=== PATIENT | female | born 1940 | race Caucasian/White ===

== ENCOUNTER → 2016-09-20 | Outpatient (CLI) | payer OTHER | LOC: BMCIMAGING 09:03 | DX: Z12.31 Encounter for screening mammogram for malignant neoplasm of breast (principal) | CPT/HCPCS: G0202 ==

== ENCOUNTER → 2016-12-24 | Outpatient (CLI) | payer OTHER | LOC: BMCIMAGING 09:47 | PROVIDERS: ATTEND Family Medicine | DX: Z13.820 Encounter for screening for osteoporosis (principal); M81.0 Age-related osteoporosis without current pathological fracture ==

== ENCOUNTER → 2017-11-04 | Outpatient (CLI) | payer OTHER | LOC: BMCIMAGING 09:05 | PROVIDERS: ATTEND Family Medicine | DX: Z12.31 Encounter for screening mammogram for malignant neoplasm of breast (principal) ==

== ENCOUNTER 2017-11-17 12:15 | Observation (INO) | payer OTHER ==
--- NOTE | 2017-11-17 13:01 | EDPHY ---
H & P Time Seen by Provider: 11/17/17 12:50 HPI/ROS: CHIEF COMPLAINT: Head pressure and difficulty speaking HISTORY OF PRESENT ILLNESS: Symptoms started on November 07 when she felt initially like her teeth were hurting and she went kayaking but had trouble with speech like she was stem ring. She had a little bit of a headache or head pressure on the left side with difficulty thinking of words to say causing her to have halting speech. She was seen at urgent care on November 10 treated with azithromycin for sinusitis. She presents today with continued left-sided head pressure associated with trouble thinking of words she wants to say causing her to Stammer with her speech. She still has some soreness especially in upper teeth and associated nausea and anxiety. No chest pain now, she has had a couple of"pings"which are seconds of chest pain over the past couple of weeks REVIEW OF SYSTEMS: Eye: No double vision ENT: No earache or sore throat Cardiac: No palpitations or syncope Pulmonary: no cough or SOB Abdomen: no vomiting, diarrhea, abdominal pain Musculoskeletal: no back pain or neck pain Skin: no rash Neuro: No vertigo Constitutional: no fever : no urinary symptoms A comprehensive 10 point review of systems is otherwise negative aside from elements mentioned in the history of present illness. PAST MEDICAL HISTORY: Includes hypothyroid and hysterectomy and mitral valve prolapse, high cholesterol Social history: Nonsmoker, here with her brother General Appearance: Alert and conversant, cooperative. Eyes: No scleral icterus. ENT, Mouth: Normal mucous membranes. No trismus, no gum swelling, normal dentition. Face nontender. Respiratory: Normal respiratory effort, breath sounds equal, lungs are clear to auscultation. Cardiovascular: Regular rate and rhythm. Gastrointestinal: Abdomen is soft and non tender. Neurological: Alert, face symmetric, normal motor and sensory in extremities. No pronator drift, [id number] bilaterally intact, speech fluent. Skin: Warm and dry, no rashes. Musculoskeletal: No peripheral edema. Neck supple. Psychiatric: Not agitated. Emergency Department course/MDM: Query TIA with difficulty with word-finding. Plan for head CT, EKG, labs to include protime and troponin. 1335: Normal head CT per Dr. Champion. Plan admission for TIA workup, discussed with patient and brother. Smoking Status: Never smoked Constitutional: Initial Vital Signs Temperature (C) 36.9 C 11/17/17 12:17 Heart Rate 66 11/17/17 12:17 Respiratory Rate 18 11/17/17 12:17 Blood Pressure 196/72 H 11/17/17 12:17 O2 Sat (%) 96 11/17/17 12:17 O2 Delivery Mode Room Air Allergies/Adverse Reactions: cephalexin [From Keflex] Allergy (Verified 11/17/17 12:17) ciprofloxacin [From Cipro] Allergy (Verified 11/17/17 12:17) nitrofurantoin [From Macrobid] Allergy (Verified 11/17/17 12:17) sulfamethoxazole [From Bactrim] Allergy (Verified 11/17/17 12:17) trimethoprim [From Bactrim] Allergy (Verified 11/17/17 12:17) Home Medications: Medication Instructions Recorded Synthroid 11/17/17 Medical Decision Making - Diagnostics EKG Interpretation: 12-lead EKG interpreted by me; official reading is in trace master. My interpretation is sinus rhythm rate 61 and nonspecific anterior T-wave flattening. Imaging Results: Imaging Impressions Head CT 11/17/17 13:00 Impression: Normal noncontrast CT of the brain. Results called to Dr. Winkler at 1:30 PM at the time of the interpretation. Imaging: Discussed imaging studies w/ plastics repairer Radiologist Differential Diagnosis: Differential for word-finding considered including but not limited to seizure, TIA, metabolic, medication related. Consult/Admit Bed Type: [place] [address] - Data Points Laboratory Results: Laboratory Results 11/17/17 12:50 11/17/17 12:50 11/17/17 11/17/17 11/17/17 12:50 12:50 12:50 WBC 7.07 10^3/uL 10^3/uL (3.80-9.50) RBC 5.04 10^6/uL 10^6/uL (4.18-5.33) Hgb 14.6 g/dL g/dL (12.6-16.3) Hct 43.3 % % (38.0-47.0) MCV 85.9 fL fL (81.5-99.8) MCH 29.0 pg pg (27.9-34.1) MCHC 33.7 g/dL g/dL (32.4-36.7) RDW 13.0 % % (11.5-15.2) Plt Count 293 10^3/uL 10^3/uL (150-400) MPV 9.9 fL fL (8.7-11.7) Neut % (Auto) 56.2 % % (39.3-74.2) Lymph % (Auto) 33.7 % % (15.0-45.0) [place] % (Auto) 7.6 % % (4.5-13.0) Eos % (Auto) 1.6 % % (0.6-7.6) Baso % (Auto) 0.6 % % (0.3-1.7) Nucleat RBC Rel Count 0.0 % % (0.0-0.2) Absolute Neuts (auto) 3.98 10^3/uL 10^3/uL (1.70-6.50) Absolute Lymphs (auto) 2.38 10^3/uL 10^3/uL (1.00-3.00) Absolute Monos (auto) 0.54 10^3/uL 10^3/uL (0.30-0.80) Absolute Eos (auto) 0.11 10^3/uL 10^3/uL (0.03-0.40) Absolute Basos (auto) 0.04 10^3/uL 10^3/uL (0.02-0.10) Absolute Nucleated RBC 0.00 10^3/uL 10^3/uL (0-0.01) Immature Gran % 0.3 % % (0.0-1.1) Immature Gran # 0.02 10^3/uL 10^3/uL (0.00-0.10) PT INR Sodium 142 mEq/L mEq/L (135-145) Potassium 4.7 mEq/L mEq/L (3.3-5.0) Chloride 107 mEq/L mEq/L (97-110) Carbon Dioxide 25 mEq/l mEq/l (22-31) Anion Gap 10 mEq/L mEq/L (8-16) BUN 25 mg/dL H mg/dL (7-23) Creatinine 0.8 mg/dL mg/dL (0.6-1.0) Estimated GFR > 60 Glucose 90 mg/dL mg/dL (70-100) Calcium 10.3 mg/dL mg/dL (8.5-10.4) Troponin I < 0.012 ng/mL ng/mL (0.000-0.034) TSH 0.508 uIU/mL uIU/mL (0.465-4.680) 11/17/17 12:50 WBC RBC Hgb Hct MCV MCH MCHC RDW Plt Count MPV Neut % (Auto) Lymph % (Auto) [place] % (Auto) Eos % (Auto) Baso % (Auto) Nucleat RBC Rel Count Absolute Neuts (auto) Absolute Lymphs (auto) Absolute Monos (auto) Absolute Eos (auto) Absolute Basos (auto) Absolute Nucleated RBC Immature Gran % Immature Gran # PT 12.8 SEC SEC (12.0-15.0) INR 0.94 (0.83-1.16) Sodium Potassium Chloride Carbon Dioxide Anion Gap BUN Creatinine Estimated GFR Glucose Calcium Troponin I TSH Departure - Departure Disposition: [facility] Inpatient Acute Clinical Impression: Word finding difficulty Condition: Good
--- NOTE | 2017-11-17 13:07 | CPEKG ---
Heart Rate: 61 RR Interval: 984 P-R Interval: 140 QRSD Interval: 72 QT Interval: 404 QTC Interval: 407 P Echo: 59 QRS Echo: 58 T Wave Echo: 45 EKG Severity - BORDERLINE ECG - EKG Impression: SINUS RHYTHM EKG Impression: BORDERLINE T ABNORMALITIES, ANTERIOR LEADS Electronically Signed By: Mario Winkler 17-Nov-2017 13:42:45
[2017-11-17 13:50] LABS: PLATELET COUNT 293 10^3/uL (150-400)
[2017-11-17 14:07] LABS: INR 0.94 (0.83-1.16); PROTIME(PATIENT) 12.8 SEC (12.0-15.0)
[2017-11-17] MEDS ORDERED: ONDANSETRON DISINTEGRATING 4 MG TAB PO PRN (14:32)
[2017-11-17] MEDS ORDERED: ACETAMINOPHEN 325 MG TAB PO PRN (14:32)
[2017-11-17] MEDS ORDERED: LABETALOL HCL 5 MG/ML 20 ML MDV IVP PRN (14:43)
[2017-11-17] MEDS ORDERED: ASPIRIN 325 MG TAB PO ONE (14:44)
[2017-11-17] MEDS ORDERED: ATORVASTATIN CALCIUM 40 MG TAB PO SCH (14:45)
--- NOTE | 2017-11-17 15:47 | PDGENHP ---
History and Physical - Chief Complaint word finding difficulties - History of Present Illness 76 yo female with h/o hypothyroidism presents to ED with word finding difficulties. She notes symptoms [place]07/2017 [place] She couldn't find the correct words. She denies slurred speech, vision changes, facial droop or focal weakness. She had a headache when she got home that day. Since then, she developed pain in her teeth and went to urgent care. She was given azithromycin for sinusitis. She noted her SBP was elevated at that time. Her BP has been up and down since then. Over the past week, she has had recurrent symptoms of "stammering" speech. She feels like her symptoms are present now. Still without focal weakness or other neurodeficits. Denies chest pressure or shortness of breath. Has h/o hypertension, but not on meds currently. She also has h/o high cholesterol and has tried 5 different statins, but gets muscle weakness. She is a lifetime non-smoker. History Information - Allergies/Home Medication List Allergies/Adverse Reactions: cephalexin [From Keflex] Allergy (Verified 11/17/17 12:17) ciprofloxacin [From Cipro] Allergy (Verified 11/17/17 12:17) nitrofurantoin [From Macrobid] Allergy (Verified 11/17/17 12:17) Nwnonil-Djf-Suz Reductase Inhibitor Allergy (Verified 11/17/17 15:48) sulfamethoxazole [From Bactrim] Allergy (Verified 11/17/17 12:17) trimethoprim [From Bactrim] Allergy (Verified 11/17/17 12:17) Home Medications: Levothyroxine [Synthroid 112 mcg (*)] 56 mcg PO Q2D@11/17/17 [Last Taken ] Levothyroxine [Synthroid 125 mcg (*)] 62.5 mcg PO Q2D@11/17/17 [Last Taken ] I have personally reviewed and updated: family history, medical history, social history, surgical history - Past Medical History hypertension, hyperlipidemia Additional medical history: hypothyroid. mitral valve prolapse - Surgical History Reports: hysterectomy Additional surgical history: cataract surgery. tonsillectomy - Family History Positive for: stroke Additional family history: mom had strokes. maternal grandfather had strokes - Social History Smoking Status: Never smoked Alcohol Use: None Drug Use: None Additional social history: Lives alone, . Active, kayaks, walks. Review of Systems Review of Systems: ROS: 10pt was reviewed & negative except for what was stated in HPI & below Physical Exam Physical Exam: Temp Pulse Resp BP Pulse Ox 36.5 C 64 18 174/61 H 97 11/17/17 15:02 11/17/17 15:02 11/17/17 15:02 11/17/17 15:02 11/17/17 15:02 Constitutional: no apparent distress Eyes: PERRL Ears, Nose, Mouth, Throat: moist mucous membranes Cardiovascular: regular rate and rhythym, no murmur, rub, or gallop Respiratory: no respiratory distress, clear to auscultation Gastrointestinal: normoactive bowel sounds, soft, non-tender abdomen Skin: warm Musculoskeletal: full muscle strength Neurologic: AAOx3, other (no facial droop, pronator drift neg, 5/5 muscle strength UE's and LE's b/l, sensation intact, speech fluent) Psychiatric: interacting appropriately Lab Data & Imaging Review 11/17/17 12:50 11/17/17 12:50 WBC 7.07 10^3/uL (3.80-9.50) 11/17/17 12:50 RBC 5.04 10^6/uL (4.18-5.33) 11/17/17 12:50 Hgb 14.6 g/dL (12.6-16.3) 11/17/17 12:50 Hct 43.3 % (38.0-47.0) 11/17/17 12:50 MCV 85.9 fL (81.5-99.8) 11/17/17 12:50 MCH 29.0 pg (27.9-34.1) 11/17/17 12:50 MCHC 33.7 g/dL (32.4-36.7) 11/17/17 12:50 RDW 13.0 % (11.5-15.2) 11/17/17 12:50 Plt Count 293 10^3/uL (150-400) 11/17/17 12:50 MPV 9.9 fL (8.7-11.7) 11/17/17 12:50 Neut % (Auto) 56.2 % (39.3-74.2) 11/17/17 12:50 Lymph % (Auto) 33.7 % (15.0-45.0) 11/17/17 12:50 [place] % (Auto) 7.6 % (4.5-13.0) 11/17/17 12:50 Eos % (Auto) 1.6 % (0.6-7.6) 11/17/17 12:50 Baso % (Auto) 0.6 % (0.3-1.7) 11/17/17 12:50 Nucleat RBC Rel Count 0.0 % (0.0-0.2) 11/17/17 12:50 Absolute Neuts (auto) 3.98 10^3/uL (1.70-6.50) 11/17/17 12:50 Absolute Lymphs (auto) 2.38 10^3/uL (1.00-3.00) 11/17/17 12:50 Absolute Monos (auto) 0.54 10^3/uL (0.30-0.80) 11/17/17 12:50 Absolute Eos (auto) 0.11 10^3/uL (0.03-0.40) 11/17/17 12:50 Absolute Basos (auto) 0.04 10^3/uL (0.02-0.10) 11/17/17 12:50 Absolute Nucleated RBC 0.00 10^3/uL (0-0.01) 11/17/17 12:50 Immature Gran % 0.3 % (0.0-1.1) 11/17/17 12:50 Immature Gran # 0.02 10^3/uL (0.00-0.10) 11/17/17 12:50 PT 12.8 SEC (12.0-15.0) 11/17/17 12:50 INR 0.94 (0.83-1.16) 11/17/17 12:50 Sodium 142 mEq/L (135-145) 11/17/17 12:50 Potassium 4.7 mEq/L (3.3-5.0) 11/17/17 12:50 Chloride 107 mEq/L (97-110) 11/17/17 12:50 Carbon Dioxide 25 mEq/l (22-31) 11/17/17 12:50 Anion Gap 10 mEq/L (8-16) 11/17/17 12:50 BUN 25 mg/dL (7-23) H 11/17/17 12:50 Creatinine 0.8 mg/dL (0.6-1.0) 11/17/17 12:50 Estimated GFR > 60 11/17/17 12:50 Glucose 90 mg/dL (70-100) 11/17/17 12:50 Calcium 10.3 mg/dL (8.5-10.4) 11/17/17 12:50 Troponin I < 0.012 ng/mL (0.000-0.034) 11/17/17 12:50 TSH 0.508 uIU/mL (0.465-4.680) 11/17/17 12:50 Visualized and Interpreted EKG results: Yes EKG Interpretation: Positive for: normal sinsus rhythm EKG additional interpertation: T wave flattening anterior leads Assessment & Plan Assessment: Word finding difficulty - she certainly has risk factors for TIA with hypertension, hyperlipidemia and positive family history. Warrants admission for TIA workup. Also consider hypertensive encephalopathy as explanation for symptoms. -CTA head and neck now -MRI, echo in am -monitor on tele, consider outpt event monitor -ASA now and continue daily, add hs pepcid due to GI symptoms with asa in past -pt declines statin, has tried 5, gets muscle weakness -check a1c, lipids -permissive hypertension for now, treat for SBP >220 -neurology consult in am Hypertension - permissive htn for now as above, should likely start anti- hypertensive prior to dc Hyperlipidemia - check lipid panel in am. Has previously not tolerate Hypothyroidism - TSH normal on arrival, cont home levothyroxine dose DVT PPLX - SCD's, ambulation. Consider Lovenox if requires prolonged hospitalization Code status - pt wishes to be DNR Dispo - obs
[2017-11-17] MEDS ORDERED: ATORVASTATIN CALCIUM 40 MG TAB PO ONE (17:00)
[2017-11-17] MEDS ORDERED: IOPAMIDOL (ISOVUE 370) 100 ML BTL IV ONE (17:09)
[2017-11-17] MEDS ORDERED: FAMOTIDINE 20 MG TAB PO SCH (21:00)
[2017-11-18] MEDS ORDERED: LEVOTHYROXINE 125 MCG TAB PO SCH (06:00)
[2017-11-18] MEDS ORDERED: ASPIRIN 81 MG CHEWABLE TAB PO SCH (09:00)
[2017-11-18] MEDS ORDERED: ASPIRIN EC 81 MG TAB PO SCH (09:00)
--- NOTE | 2017-11-18 09:15 | NEUROPROG ---
Assessment: HOSPITAL NEUROLOGY CONSULT REQUESTING: Amanda Valadez DO REASON: word finding trouble HPI: 76 year old right-handed woman with a history of HLD, HTN and hypothyroidism presented to our ED yesterday due to word finding troubles. Patient states she was kayaking on 11/07 and while in her kayak she felt some mild trouble finding her words. She states she would have trouble finding the right word mid-sentence, then she would be able to correctly produce the word. She was with friends and they hadn't noted any issues. She felt her teeth were hurting and a bit anxious. She also felt a sense of "fog" in her head, "like a headache was coming on but I didn't really have a headache." She went to an urgent care because she thought this might be a sinus issue - she was given an antibiotic, but despite this measure she continues to have word-finding issues. She does have a history of HTN and is not on medication. She has been taking her own BPs and notes she feels better when it is lower. She continues to endorse the word-finding issues and "fog" today, though it has not been evident to other providers. She has no prior history of stroke or TIA. ROS: As per the HPI, otherwise a complete 12 point ROS was performed and is negative ALLERGIES AND MEDS: As recorded in the EMR - reviewed and reconciled PFSH: As per the intake H&P by Dr. Valadez from yesterday EXAM: VS reviewed in EMR GEN: WDWN walking about her room in NAD HEENT: NCAT, sclera anicteric, conjunctiva not injected, MMM, oropharynx clear, no scalp tenderness NECK: supple, nontender, no meningismus CV: RRR s1 s2 wo m/r/c/g. Carotid pulses 2+ wo bruit NEURO: MS: awake, alert, oriented to all spheres. Speech nondysarthric. No language disturbance. Follows commands. Attends to both sides. Recent/remote memory grossly intact. Mood euthymic. Good fund of knowledge. CN: pupils 4mm round and reactive. Unable to visualize fundi. VFF. Primary gaze centered. Full ocular motility. Facial sensation preserved. Face symmetric. Hearing grossly intact to finger rub. Palatoglossal movements intact. Shoulder shrug and head turn strong. MOTOR: normal bulk/tone. No adventitial movements. Full power throughout. SENSORY: symmetric/intact LT/PP in all extremities. No extinction. COORD: no ataxia FN/HS. Efra preserved. Romberg neg. REFLEX: plantars down. No clonus. Absent ankle jerks, other DTRS 2/4. GAIT: rises unassisted. Narrow base. Intact stride length/heel strike/toe lift /arm swing. Turns with 2 steps. No postural instability. DATA REVIEW: Labs reviewed in EMR PERSONALLY INTERPRETED RESULTS AND DATA: CT head wo - normal CTA head/neck - normal caliber vessels IMPRESSION AND RECOMMENDATIONS: // COGNITIVE INEFFICIENCY // HTN Patient with subjective word-finding difficulty and brain fog. She has no other symptoms and no objective evidence of language difficulty here in hospital. Differential includes hypertensive emergency, primary cognitive condition (ie neurodegeneration), less likely stroke. Will get MRI brain wo to rule out stroke. Medical management per primary team. OK to lower BP with intervention for SBP > 160, goal normotension (onset of symptoms 11 days ago). If MRI brain wo is negative for any acute/subacute ischemia, OK to discharge with follow-up with PCP for evaluation/management of HTN. If subjective word- finding difficulty continues despite BP optimization, then recommend evaluation with neuropsychology. Objective: Vital Signs Temp Pulse Resp BP Pulse Ox 36.9 C 68 17 147/65 H 95 11/18/17 07:45 11/18/17 07:45 11/18/17 07:45 11/18/17 07:45 11/18/17 07:45 11/17/17 11/18/17 11/19/17 05:59 05:59 05:59 Intake Total 1250 Balance 1250 PT 12.8 SEC (12.0-15.0) 11/17/17 12:50 INR 0.94 (0.83-1.16) 11/17/17 12:50 Allergies/Adverse Reactions: cephalexin [From Keflex] Allergy (Verified 11/17/17 12:17) ciprofloxacin [From Cipro] Allergy (Verified 11/17/17 12:17) nitrofurantoin [From Macrobid] Allergy (Verified 11/17/17 12:17) Zunkvwh-Cim-Iih Reductase Inhibitor Allergy (Verified 11/17/17 15:48) sulfamethoxazole [From Bactrim] Allergy (Verified 11/17/17 12:17) trimethoprim [From Bactrim] Allergy (Verified 11/17/17 12:17)
--- NOTE | 2017-11-18 09:38 | ECHO ---
[email or web address] [address] [address] Main: [phone] Fax: Transthoracic Echocardiogram Name: GILDA PALACIOS MR#: [id number] Study Date: 11/17/2017 Study Time: 04:25 PM Date of : 1940 Age: 76 year(s) Height: 149.9 cm (59 in.) Weight: 52.62 kg (116 lb.) BSA: 1.46 m2 Gender: Female Examination: Echo Indication: TIA Image Quality: Adequate Contrast: Requested by: Amanda aVladez BP: 174 mmHg/61 mmHg Heart Rate: Rhythm: Indication: TIA Procedure Staff Final Assembly And Packing Supervisor: Stephanie Villa RDCS Reading Physician: Benedicto Thomas MD Requesting Provider: Conclusions: Normal global systolic LV function. EF is 66 %. Mild mitral valve regurgitation is present. Moderate aortic valve regurgitation is present. Moderate tricuspid regurgitation is present. Right ventricular systolic pressure measures 46mmHg. Measurements: Chambers Valvular Assessment AV/MV Valvular Assessment TV/PV Normal Normal Normal Name Value Range Name Value Range Name Value Range Ao Kamille (2D): 2.3 cm (1.4 cm-2.6 AV Vmax: 1.50 m/s (1 m/s-1.7 TR Vmax: 3.19 mm/s ( - ) cm) m/s) TR PGmax: 41 mmHg ( - ) IVSd (2D): 0.8 cm (0.6 cm-1.1 AV meanP mmHg ( - ) syst. PAP: 46 mmHg ( - ) cm) NOE (VTI): 1.8 cm ( - ) PV Vmax: 0.69 m/s (0.6 m/s-0.9 LVDd (2D): 3.4 cm (3.9 cm-5.3 AR (PHT): 261 ms ( - ) m/s) cm) MV E Vmax: 0.58 m/s ( - ) PV PGmax: 2 mmHg ( - ) LVDs (2D): 2.3 cm (2.1 cm-4 MV A Vmax: 0.88 m/s ( - ) cm) MV E/A: 0.66 ( - ) LVPWd (2D): 0.9 cm ( - ) MV PHT: 0.069 s ( - ) LVOTd 1.7 cm 1.7 cm mm MVA (PHT): 3.2 s ( - ) LVEF (BP): 66 % (>=55 %) RVDd(2D): 3.1 cm (1.9 cm-3.8 cmmm) Continued Measurements: Chambers Valvular Assessment AV/MV Valvular Assessment TV/PV Name Value Name Value Name Value LADs: 2.9 cm MV DecTime: 225 m/s CVP (est.): 5 mmHg Patient: GILDA PALACIOS Study Date: 11/17/2017 Page 1 of 2 04:25 PM LADs Lon.9 cm MV E' Septal: 0.07 m/s LA Area: 14.0 cm2 MV E/E' Septal: 8.80 LA Volume: 36 ml MV E/E' Lateral: 10.50 LA Volume Index: 24.7 ml/m2 AR Vmax: 4.70 cm/s RA Area: 14.8 cm2 Additional Vessels Name Value Ao Ascendin.4 cm Findings: Left Ventricle: Normal size left ventricle. No LV hypertrophy. Normal global systolic LV function. EF is 66 %. No regional wall motion abnormality. Diastolic dysfunction is present. . Right Ventricle: Normal size right ventricle. Normal RV function. Left Atrium: The left atrium is normal in size. Right Atrium: The right atrium is normal in size. Mitral Valve: The mitral valve is normal in appearance and function. Mild mitral valve regurgitation is present. No mitral stenosis is present. Aortic Valve: The aortic valve is tri-leaflet. Aortic sclerosis is present. No aortic valve stenosis is present. Moderate aortic valve regurgitation is present. Tricuspid Valve: The tricuspid valve is normal in appearance and function. Moderate tricuspid regurgitation is present. The pulmonary artery pressure is mildly increased. Right ventricular systolic pressure measures 46mmHg. Pulmonic Valve: The pulmonic valve is normal in appearance and function. There is no pulmonic regurgitation seen. Aorta: The aorta is normal. Normal size aortic root measuring 2.3 cm. Normal size ascending aorta measuring 2.4 cm. IVC: Not well seen. Pericardium: No pericardial effusion. No pleural effusion. (No Signature Object) Patient: GILDA PALACIOS Study Date: 11/17/2017 Page 2 of 2 04:25 PM [id number]
[2017-11-18 11:04] VITALS: BP 134/60
--- NOTE | 2017-11-18 12:15 | ASMTLACE ---
LACE Length of stay for Answers: Less than 1 day current admission Acuity / Level of Answers: No Care: Did the patient have an inpatient admission? # of Emergency department Answers: 1-2 visits in the last 6 months Score: 1 Date Signed: 11/18/2017 12:15 PM Electronically Signed By:AIMEE Agosto
--- NOTE | 2017-11-18 12:15 | ASDISCHSUM ---
Discharge Information Plan Status:Home with No Needs Medically Cleared to Leave:11/18/2017 Discharge Date:11/18/2017 CM D/C Disposition:Home, Routine, Self-Care ADT D/C Disposition:Home, Routine, Self-Care Projected Discharge Date:11/18/2017 Transportation at D/C:Family Discharge Delay Reason: Follow-Up Date:11/18/2017 Discharge Slot: Final Diagnosis: Placement Information Patient Contact Information Contact Name:SARAH Relationship:Kevin Address: Work Phone: City: [facility] Phone: State/Zip Code: Email: Financial Information Financial Class:Medicare Primary Plan Desc:MEDICARE OUTPATIENT Primary Plan Number:[id number] Secondary Plan Desc:SEBASTIÁN SANCHEZ PPO Secondary Plan Number:[id number] Assessment Information Intervention Information
--- NOTE | 2017-11-18 13:47 | GDS ---
[f rep st] DISCHARGE SUMMARY DISCHARGE DIAGNOSES: 1. Hypertension. 2. Word-finding difficulty. STUDIES AND PROCEDURES DONE: 1. CT of the head. 2. CT angio of the head and neck. 3. Echocardiogram. 4. MRI of the brain. CONSULTATIONS: Neurology. PHYSICAL EXAM: GENERAL: The patient is alert and oriented. VITAL SIGNS: Afebrile at 36.6, pulse i s 70, respiratory rate 19, blood pressure is 134/60. She is saturating 95% on room air. I have seen and evaluated the patient on the day of discharge. HOSPITAL COURSE: The patient is a 76-year-old female who presented to the emergency room with compla ints of word-finding difficulty. She was evaluated during this hospitalization. She did receive a C T angio of the head and neck as well as an MRI of the brain and an echocardiogram. These studies are benign with no acute process identified. Neurology did consult on the patient as her condition and symptoms have completely resolved. She did have some intermittent hypertension over the last several weeks as well as during this hospitalization. The etiology is unclear. She is to keep a blood pres sure journal and follow up in the outpatient setting with her primary care physician. There are no p ending studies. The patient's elevated cholesterol is well known to her. She has tried several medications in the ne st and again will have a discussion with her primary care physician. DISCHARGE MEDICATIONS: Please refer to EMR form. Followup will be with Dr. Maria M Cornejo, her primary care provider, as well as Dr. Chirag Rajput of Neurology. /[id number]/MODL
[2017-11-19] MEDS ORDERED: LEVOTHYROXINE 112 MCG TAB PO SCH (06:00)
== END 2017-11-18 13:16 | disposition home or self-care (01) ==
LOC: F3N 14:51
PROVIDERS: ADMIT Hospitalist; ATTEND Hospitalist
DX: I10 Essential (primary) hypertension (principal); R47.01 Aphasia; E03.9 Hypothyroidism, unspecified
CPT/HCPCS: 70450; 70496; 70498; 70551; 92523; 93005; 93306; 97165; G0378; G8987; G8988; G8989; G9159; G9160; G9161; Q9967

== ENCOUNTER → 2018-11-25 | Outpatient (CLI) | payer OTHER | LOC: BMCIMAGING 13:18 ==

== ENCOUNTER → 2018-12-18 | Outpatient (CLI) | payer OTHER | LOC: FIMAGING 14:08 ==